=== PATIENT | female | born 1985 | race Asian ===

== ENCOUNTER 2022-04-07 18:52 | Emergency (ER) | payer OTHER ==
[2022-04-07] MEDS ORDERED: LIDOCAINE PATCH 5% TOP STA (20:40)
--- NOTE | 2022-04-07 20:43 | ED Physician Documentation ---
History of Present Illness - Stated complaint Stated Complaint: RT SIDE PX - Chief complaint Chief Complaint: Back Pain - History obtained from History obtained from: Patient - Additonal information Additional information: Patient is a 36-year-old female presenting for evaluation of right sided Thoracicpain that started this afternoon After assisting a patient transferring from a toilet to a wheelchair.She says the pain started right away and has gradually been getting worse. She says it hurts to take a deep breath and bend down and twist.She otherwise denies feeling short of breath or having chest pain.She has taken Advil With minimal improvement. Review of Systems Constitutional: denies: Fever Nose: denies: Congestion Cardiac: denies: Chest pain / pressure Respiratory: denies: Dyspnea GI: denies: Abdominal Pain Musculoskeletal: reports: Back pain Neurologic: denies: Headache PD PAST MEDICAL HISTORY - Allergies Allergies/Adverse Reactions: Allergies Allergy/AdvReac Type Severity Reaction Status Date / Time No Known Drug Allergies Allergy Verified 04/07/22 19:00 PD ED PE NORMAL - General General: Alert and oriented X 3, No acute distress, Well developed/nourished - HEENT HEENT: Atraumatic - Neck Neck: Supple, no meningeal sign - Cardiac Cardiac: RRR, No murmur - Respiratory Respiratory: No respiratory distress, Clear bilaterally - Abdomen Abdomen: Soft, Non tender - Back Back: Other (Tenderness to right lower thoracic Region and right lower anterior ribs; No crepitus, no bruising, no deformities, no paradoxical movements) - Derm Derm: Warm and dry - Neuro Neuro: Normal speech Results - Vitals Vitals: Vital Signs - 24 hr 04/07/22 04/07/22 18:56 20:47 Temperature 36.1 C L 36.5 C Heart Rate 74 72 Respiratory 16 16 Rate Blood Pressure 134/85 H 130/80 O2 Saturation 99 100 Oxygen O2 Source Room air PD MEDICAL DECISION MAKING - ED course ED course: Patient with right-sided thoracic pain after helping transfer a patient earlier today.Her pain is reproducible.I do not see deformities, rash, paradoxical movement. She has clear breath sounds and is able to take deep breaths without issue.Her oxygen saturations are normal. I did offer a chest x-ray which patient declined.Her symptoms are likely a muscle strain and discussed continued supportive care as well as concerning symptoms to return for. Departure - Departure Disposition: 01 Home, Self Care Clinical Impression: Chest wall muscle strain Instructions: ED Sprain Thoracic Spine Comments: Your symptoms are likely from a pulled muscle from Activity at work.This may take several days to feel better. I would recommend lidocaine patches and anti- inflammatories as well as ice versus heat depending on which feels better. I will have the off of work for the next 2 days. If it is not improving after 2 to 3 days and I would recommend a recheck. If you have any worsening symptoms and please consider return to the ER. Forms: Activity restrictions Discharge Date/Time: 04/07/22 20:47
[2022-04-07 20:49] VITALS: BP 130/80
== END 2022-04-07 20:47 | disposition home or self-care (01) ==
LOC: ED 18:52
DX: S29.012A Strain of muscle and tendon of back wall of thorax, initial encounter (principal); X58.XXXA Exposure to other specified factors, initial encounter; Y99.0 Civilian activity done for income or pay
CPT/HCPCS: 1040M; 99282; A9270